=== PATIENT | female | born 1975 | race Caucasian/White ===

== ENCOUNTER 2016-10-21 15:26 | Emergency (ER) | payer MEDICAID ==
[2016-10-21] MEDS ORDERED: OXYcodone/APAP 5/325MG TABLET ONE (15:49)
== END 2016-10-21 16:10 ==
LOC: ED 15:26
DX: K08.89 Other specified disorders of teeth and supporting structures (principal); E11.9 Type 2 diabetes mellitus without complications
CPT/HCPCS: 99283